=== PATIENT | male | born 1945 | race Caucasian/White ===

== ENCOUNTER 2019-02-26 11:07 | Inpatient (IN) | payer OTHER ==
[~2019-02-26] VITALS: Ht 172.7 cm; Wt 102.1 kg
[2019-02-26 12:14] LABS: BASOPHILS % (AUTO) 0.4 % (0.0-5.0); EOSINOPHILS % (AUTO) 0.7 % (0.0-8.0); HEMATOCRIT 43.9 % (42-54); LYMPHOCYTES % (AUTO) 6.6 % (21.0-51.0); MEAN CORPUSCULAR HEMOGLOBIN 29.1 pg (27.0-33.0); MEAN CORPUSCULAR HGB CONC 33.4 g/dL (32.0-36.0); MEAN CORPUSCULAR VOLUME 87.2 fL (79-99); MONOCYTES % (AUTO) 9.6 % (3.0-13.0); NEUTROPHILS % (AUTO) 82.7 % (40.0-77.0); NUCLEATED RED BLOOD CELLS 0.1 % (0.0-0.19); PLATELET COUNT (AUTO) 267 K/uL (130-400); RED BLOOD CELL COUNT(AUTO) 5.04 MIL/uL (4.50-6.20); RED CELL DISTRIBUTION WIDTH 15.3 % (11.0-15.5); WHITE BLOOD COUNT (AUTO) 11.7 K/uL (4.8-10.8)
[2019-02-26 12:27] LABS: CREATININE 1.1 mg/dL (0.5-1.5); POTASSIUM 4.2 mmol/L (3.5-5.1)
[2019-02-26 12:29] LABS: INR 1.03 (0.85-1.15); PARTIAL THROMBOPLASTIN TIME 28.2 SEC (26.3-35.5); PROTHROMBIN TIME 10.8 SEC (9.6-11.6)
[2019-02-26 12:34] LABS: ALBUMIN 3.3 g/dL (3.5-5.0); BILIRUBIN,TOTAL 1.4 mg/dL (0.2-1.0); TOTAL PROTEIN, SERUM 5.6 g/dL (6.0-8.3)
[2019-02-26] MEDS ORDERED: SODIUM CHLORIDE 0.9% 1000ML 1,000 ML IV ONE (13:06)
[2019-02-26 14:02] LABS: APPEARANCE,URINE Clear (CLEAR); BILIRUBIN,URINE Negative (NEGATIVE); COLOR,URINE Yellow (YELLOW); GLUCOSE, URINE (UA) Negative (NEGATIVE); KETONES,URINE Negative (NEGATIVE); LEUKOCYTE ESTERASE ,URINE Negative (NEGATIVE); NITRATE,URINE Negative (NEGATIVE); OCCULT BLOOD,URINE Negative (NEGATIVE); PROTEIN,URINE Negative (NEGATIVE)
[2019-02-26 19:09] VITALS: BP 120/72
[2019-02-26] MEDS ORDERED: HYDR-4153 PO (19:57)
[2019-02-26] MEDS ORDERED: TAMS-1 PO (19:57)
[2019-02-26] MEDS ORDERED: SOLI10TA PO (19:57)
[2019-02-26] MEDS ORDERED: ASPI-555 PO (19:57)
[2019-02-26] MEDS ORDERED: MONT10TA24 PO (19:57)
[2019-02-26] MEDS ORDERED: LOSA100T58 PO (19:57)
[2019-02-26] MEDS ORDERED: CETI10TA57 PO (19:57)
[2019-02-26] MEDS ORDERED: [UNRECOGNIZED DRUG - OTHER] (19:57)
[2019-02-26] MEDS ORDERED: MULT-1192 PO (19:57)
[2019-02-26] MEDS ORDERED: ATOR10 PO (19:57)
[2019-02-26] MEDS ORDERED: TURM1POW MC (19:57)
[2019-02-26] MEDS ORDERED: CHOL100018 PO (19:57)
[2019-02-26] MEDS ORDERED: NAPR220T57 PO (19:57)
[2019-02-26 23:30] VITALS: BP 173/103
[2019-02-27] VITALS (7 sets, daily range): BP systolic 134–172; BP diastolic 81–117
[2019-02-27] MEDS ORDERED: HYDRALAZINE HCL 20 MG/ML VIAL ONE (04:33)
[2019-02-27] MEDS: FAMOTIDINE 20MG TAB 20 MG TAB PO SCH (10:13)
[2019-02-27] MEDS: ENOXAPARIN SODIUM 40 MG/0.4 ML SYRINGE SQ SCH (10:13)
[2019-02-27] MEDS: HYDRALAZINE HCL 20 MG/ML VIAL IV PRN ×2 (10:15→22:47)
[2019-02-27] MEDS ORDERED: CETIRIZINE HCL 5 MG TABLET PO PRN (15:30)
[2019-02-27] MEDS: HYDRALAZINE HCL 25 MG TABLET PO SCH (17:31)
[2019-02-27] MEDS: ATORVASTATIN CALCIUM 20 MG TABLET PO SCH (21:06)
[2019-02-27] MEDS: OXYBUTYNIN CHLORIDE 5 MG TABLET PO SCH (21:07)
--- NOTE | 2019-02-27 22:47 | NUR ---
B/P B/P 172/117, NO SOB, NO C/O PAIN , HYDRALAZINE 10 MG IVP GIVEN SLOWLY
--- NOTE | 2019-02-27 23:45 | NUR ---
MED EFFECT B/P 155/88, NO SOB, NO C/O PAIN AT THIS TIME
[2019-02-28 03:48] VITALS: BP 161/80
[2019-02-28 06:13] LABS: HEMATOCRIT 42.8 % (42-54); MEAN CORPUSCULAR HEMOGLOBIN 29.6 pg (27.0-33.0); MEAN CORPUSCULAR HGB CONC 33.8 g/dL (32.0-36.0); MEAN CORPUSCULAR VOLUME 87.6 fL (79-99); PLATELET COUNT (AUTO) 309 K/uL (130-400); RED BLOOD CELL COUNT(AUTO) 4.89 MIL/uL (4.50-6.20); RED CELL DISTRIBUTION WIDTH 15.6 % (11.0-15.5); WHITE BLOOD COUNT (AUTO) 7.2 K/uL (4.8-10.8)
[2019-02-28 06:18] LABS: CREATININE 0.7 mg/dL (0.5-1.5); POTASSIUM 3.7 mmol/L (3.5-5.1)
[2019-02-28 07:51] VITALS: BP 177/115
[2019-02-28] MEDS: **HM**Cholecalciferol (Vitamin D3) (Vitamin D3) 1,000 UNIT PO SCH (09:00)
[2019-02-28] MEDS: LOSARTAN 100 MG TABLET PO SCH (09:03)
[2019-02-28] MEDS: ASPIRIN 81MG TAB.CHEW PO SCH (09:03)
[2019-02-28] MEDS: MULTIVITAMIN TABLET PO SCH (09:03)
[2019-02-28] MEDS: OXYBUTYNIN CHLORIDE 5 MG TABLET PO SCH ×3 (09:03→20:00)
[2019-02-28] MEDS: MONTELUKAST SODIUM 10 MG TAB PO SCH (09:03)
[2019-02-28] MEDS: FAMOTIDINE 20MG TAB 20 MG TAB PO SCH (09:03)
[2019-02-28] MEDS: HYDRALAZINE HCL 25 MG TABLET PO SCH ×2 (09:03→20:00)
[2019-02-28] MEDS: TAMSULOSIN HCL 0.4 MG CAP.ER.24H PO SCH (09:03)
[2019-02-28] MEDS: ENOXAPARIN SODIUM 40 MG/0.4 ML SYRINGE SQ SCH (09:05)
[2019-02-28 12:00] VITALS: BP 122/72
[2019-02-28] MEDS ORDERED: HYDRALAZINE HCL 25 MG TABLET PO SCH (12:00)
--- NOTE | 2019-02-28 15:00 | NUR ---
INITIAL MET W PATIENT & FAMILY RE PLACEMENT-NYA HOFFMAN IS REQUESTED. PT LIVES W SPOUSE WHO PROVIDES CARE. PT IS BLIND, HAS DEMENTIA AND REPEATS HIMSELF A LOT, FREQUENT FALLS AND POOR BALANCE, HAS CANE, HAS A WALKER, BUT DOES NOT USE. REFERRAL FAXED AND CALLED TO [facility] Addendum: 03/01/19 at 6 by VIC OWENS RN CM Amended: Links added.
--- NOTE | 2019-02-28 15:50 | NUR ---
[employer] consult Patient assessed as ordered. Patient injured right great toe when he fell at home last Monday. Right great toe nail removed in ED. [facility] recommendations submitted. Addendum: 02/28/19 at 1631 by ZOEY JENKINS RN/ Amended: Links added.
[2019-02-28 16:00] VITALS: BP 135/94
[2019-02-28] MEDS: NEOMY SULF/BACITRAC ZN/POLY OINT 30GM TUBE TP SCH (18:26)
[2019-02-28 19:30] VITALS: BP 135/90
[2019-02-28] MEDS ORDERED: HYDRALAZINE HCL 25 MG TABLET ONE (19:57)
[2019-02-28] MEDS: ATORVASTATIN CALCIUM 20 MG TABLET PO SCH (20:00)
[2019-02-28] MEDS ORDERED: DILTIAZEM HCL 5 MG/ML 5 ML VIAL IVP SCH (20:45)
[2019-02-28] MEDS ORDERED: DILTIAZEM HCL 5 MG/ML 10 ML VIAL IV ONE (20:50)
--- NOTE | 2019-02-28 21:05 | NUR ---
[employer] THREAD MACHINE OPERATOR TECH CALLED TO INFORM ME THAT PATIENT HAD CONVERTED FROM SINUS TO ATRIAL FIBRILLATION IN THE S SINCE 1854. PATIENT ASYMPTOMATIC AND BLOOD PRESSURE AT 138/68 HR 94. I. HIREN RODRIGUEZ INFORMED OF PATIENT CONDITION AND GAVE ORDERS FOR CARDIZEM IV ONCE AND MAY REPEAT DOSE TIMES ONE.
--- NOTE | 2019-02-28 23:30 | NUR ---
SINUS PATIENT CONVERTED BACK TO SINUS RHYTHM
[2019-02-28 23:58] VITALS: BP 146/90
[2019-03-01 03:30] VITALS: BP 156/99
[2019-03-01 04:26] LABS: HEMATOCRIT 44.7 % (42-54); MEAN CORPUSCULAR HEMOGLOBIN 29.5 pg (27.0-33.0); MEAN CORPUSCULAR VOLUME 88.6 fL (79-99); RED BLOOD CELL COUNT(AUTO) 5.05 MIL/uL (4.50-6.20); WHITE BLOOD COUNT (AUTO) 6.7 K/uL (4.8-10.8)
[2019-03-01 04:27] LABS: MEAN CORPUSCULAR HGB CONC 33.3 g/dL (32.0-36.0); NUCLEATED RED BLOOD CELLS 0.1 % (0.0-0.19); PLATELET COUNT (AUTO) 277 K/uL (130-400); RED CELL DISTRIBUTION WIDTH 15.8 % (11.0-15.5)
[2019-03-01 04:36] LABS: CREATININE 0.9 mg/dL (0.5-1.5); POTASSIUM 3.7 mmol/L (3.5-5.1)
[2019-03-01] MEDS: ASPIRIN 81MG TAB.CHEW PO SCH (07:47)
[2019-03-01] MEDS: MONTELUKAST SODIUM 10 MG TAB PO SCH (07:47)
[2019-03-01] MEDS: OXYBUTYNIN CHLORIDE 5 MG TABLET PO SCH ×3 (07:48→20:58)
[2019-03-01] MEDS: FAMOTIDINE 20MG TAB 20 MG TAB PO SCH (07:51)
[2019-03-01] MEDS: TAMSULOSIN HCL 0.4 MG CAP.ER.24H PO SCH (07:51)
[2019-03-01] MEDS: MULTIVITAMIN TABLET PO SCH (07:51)
[2019-03-01] MEDS: METOPROLOL TARTRATE 25 MG TAB PO SCH ×2 (07:56→20:58)
[2019-03-01] MEDS: **HM**Cholecalciferol (Vitamin D3) (Vitamin D3) 1,000 UNIT PO SCH (07:56)
[2019-03-01] MEDS: LOSARTAN 100 MG TABLET PO SCH (07:56)
[2019-03-01 07:57] VITALS: BP 157/111
[2019-03-01] MEDS: HYDRALAZINE HCL 25 MG TABLET PO SCH ×3 (07:57→20:58)
[2019-03-01] MEDS: ENOXAPARIN SODIUM 40 MG/0.4 ML SYRINGE SQ SCH (07:58)
[2019-03-01] MEDS: NEOMY SULF/BACITRAC ZN/POLY OINT 30GM TUBE TP SCH (08:01)
[2019-03-01 10:54] VITALS: BP 121/87
--- NOTE | 2019-03-01 16:00 | NUR ---
AWAITING AUTH FROM [facility] UPDATED PT NOTES FAXED TO [facility]. BLANK FAXED, Addendum: 03/01/19 at 7 by VIC OWENS RN CM Amended: Links added.
[2019-03-01 16:14] VITALS: BP 136/90
[2019-03-01 19:30] VITALS: BP 151/91
[2019-03-01] MEDS: ATORVASTATIN CALCIUM 20 MG TABLET PO SCH (20:58)
[2019-03-01 23:30] VITALS: BP 133/94
[2019-03-02 03:30] VITALS: BP 159/88
[2019-03-02 04:19] LABS: HEMATOCRIT 43.2 % (42-54); MEAN CORPUSCULAR HEMOGLOBIN 29.3 pg (27.0-33.0); MEAN CORPUSCULAR HGB CONC 33.4 g/dL (32.0-36.0); MEAN CORPUSCULAR VOLUME 87.5 fL (79-99); PLATELET COUNT (AUTO) 318 K/uL (130-400); RED BLOOD CELL COUNT(AUTO) 4.94 MIL/uL (4.50-6.20); RED CELL DISTRIBUTION WIDTH 15.6 % (11.0-15.5); WHITE BLOOD COUNT (AUTO) 6.8 K/uL (4.8-10.8)
[2019-03-02 04:21] LABS: CREATININE 0.8 mg/dL (0.5-1.5); POTASSIUM 3.6 mmol/L (3.5-5.1)
[2019-03-02] MEDS ORDERED: LACTULOSE 20 GM/30 ML UDCUP PO PRN (05:00)
[2019-03-02] MEDS: LACTULOSE 20 GM/30 ML UDCUP PO PRN ×2 (05:01→18:34)
[2019-03-02 07:41] VITALS: BP 158/69
[2019-03-02] MEDS: HYDRALAZINE HCL 25 MG TABLET PO SCH ×2 (08:13→14:00)
[2019-03-02] MEDS: ASPIRIN 81MG TAB.CHEW PO SCH (08:13)
[2019-03-02] MEDS: LOSARTAN 100 MG TABLET PO SCH ×2 (08:13→20:52)
[2019-03-02] MEDS: TAMSULOSIN HCL 0.4 MG CAP.ER.24H PO SCH ×2 (08:13→20:52)
[2019-03-02] MEDS: MULTIVITAMIN TABLET PO SCH (08:14)
[2019-03-02] MEDS: OXYBUTYNIN CHLORIDE 5 MG TABLET PO SCH ×3 (08:14→20:52)
[2019-03-02] MEDS: METOPROLOL TARTRATE 25 MG TAB PO SCH ×2 (08:14→20:52)
[2019-03-02] MEDS: FAMOTIDINE 20MG TAB 20 MG TAB PO SCH (08:14)
[2019-03-02] MEDS: MONTELUKAST SODIUM 10 MG TAB PO SCH (08:14)
[2019-03-02] MEDS: ENOXAPARIN SODIUM 40 MG/0.4 ML SYRINGE SQ SCH (08:21)
[2019-03-02] MEDS: ACETAMINOPHEN 325 MG TAB PO PRN ×2 (08:24→20:54)
[2019-03-02] MEDS: **HM**Cholecalciferol (Vitamin D3) (Vitamin D3) 1,000 UNIT PO SCH (09:00)
[2019-03-02 10:51] VITALS: BP 115/70
[2019-03-02] MEDS: NEOMY SULF/BACITRAC ZN/POLY OINT 30GM TUBE TP SCH (14:37)
[2019-03-02 16:17] VITALS: BP 131/85
[2019-03-02 19:42] VITALS: BP 147/95
[2019-03-02] MEDS: ATORVASTATIN CALCIUM 20 MG TABLET PO SCH (20:52)
[2019-03-03] VITALS (8 sets, daily range): BP systolic 123–168; BP diastolic 78–112
[2019-03-03] MEDS: ACETAMINOPHEN 325 MG TAB PO PRN ×2 (09:00→18:54)
[2019-03-03] MEDS: **HM**Cholecalciferol (Vitamin D3) (Vitamin D3) 1,000 UNIT PO SCH (09:00)
[2019-03-03] MEDS: OXYBUTYNIN CHLORIDE 5 MG TABLET PO SCH ×3 (10:03→21:46)
[2019-03-03] MEDS: HYDRALAZINE HCL 25 MG TABLET PO SCH ×3 (10:03→21:46)
[2019-03-03] MEDS: ASPIRIN 81MG TAB.CHEW PO SCH (10:03)
[2019-03-03] MEDS: MULTIVITAMIN TABLET PO SCH (10:03)
[2019-03-03] MEDS: MONTELUKAST SODIUM 10 MG TAB PO SCH (10:03)
[2019-03-03] MEDS: FAMOTIDINE 20MG TAB 20 MG TAB PO SCH (10:04)
[2019-03-03] MEDS: LACTULOSE 20 GM/30 ML UDCUP PO PRN (10:07)
[2019-03-03] MEDS: ENOXAPARIN SODIUM 40 MG/0.4 ML SYRINGE SQ SCH (10:08)
[2019-03-03] MEDS ORDERED: DOCUSATE SODIUM 100 MG CAP PO PRN (11:00)
[2019-03-03] MEDS ORDERED: SENNOSIDES 8.6 MG TABLET PO PRN (11:00)
--- NOTE | 2019-03-03 11:00 | NUR ---
DR. LU RUSHING HERE TO SEE PATIENT. INFORMED MD OF PATIENT REPORTING NO BOWEL MOVEMENT SINCE 02/26/19 DESPITE TAKING LACTULOSE YESTERDAY AND TODAY. MD PLACED ORDERS.
[2019-03-03] MEDS: METOPROLOL TARTRATE 25 MG TAB PO SCH ×2 (11:05→21:46)
[2019-03-03] MEDS: NEOMY SULF/BACITRAC ZN/POLY OINT 30GM TUBE TP SCH (14:19)
[2019-03-03] MEDS ORDERED: TAMSULOSIN HCL 0.4 MG CAP.ER.24H PO SCH (21:00)
[2019-03-03] MEDS ORDERED: LOSARTAN 100 MG TABLET PO SCH (21:00)
[2019-03-03] MEDS: ATORVASTATIN CALCIUM 20 MG TABLET PO SCH (21:46)
[2019-03-03] MEDS: LOSARTAN 100 MG TABLET PO SCH (21:46)
[2019-03-03] MEDS: TAMSULOSIN HCL 0.4 MG CAP.ER.24H PO SCH (21:46)
[2019-03-04 04:00] VITALS: BP 161/106
[2019-03-04 05:41] LABS: HEMATOCRIT 43.1 % (42-54); MEAN CORPUSCULAR HEMOGLOBIN 29.3 pg (27.0-33.0); MEAN CORPUSCULAR HGB CONC 33.4 g/dL (32.0-36.0); MEAN CORPUSCULAR VOLUME 87.8 fL (79-99); PLATELET COUNT (AUTO) 304 K/uL (130-400); RED CELL DISTRIBUTION WIDTH 15.5 % (11.0-15.5); WHITE BLOOD COUNT (AUTO) 6.4 K/uL (4.8-10.8)
[2019-03-04 05:43] LABS: CREATININE 0.8 mg/dL (0.5-1.5); POTASSIUM 3.3 mmol/L (3.5-5.1)
[2019-03-04 06:38] LABS: BAND NEUTROPHILS % (MANUAL) 1 % (0-2); BASOPHILS % (MANUAL) 1 % (0-2); EOSINOPHILS % (MANUAL) 1 % (1-6); LYMPHOCYTES % (MANUAL) 13 % (22-44); MAN.DIFF COMMENT-IMPRESSION MANUAL DIFFERENTIAL; MONOCYTES % (MANUAL) 9 % (2-9); SEGMENTED NEUTROPHILS % 75 % (40-70)
[2019-03-04 06:39] LABS: PLATELET MORPHOLOGY COMMENT ADEQUATE
[2019-03-04] MEDS ORDERED: POTASSIUM CHLORIDE 20 MEQ ERTAB PO SCH (07:30)
[2019-03-04] MEDS ORDERED: HYDR-4154 PO (07:51)
[2019-03-04] MEDS ORDERED: AMLO5TAB4 PO (07:51)
[2019-03-04] MEDS ORDERED: FAMO20TA8 PO (07:51)
[2019-03-04] MEDS ORDERED: METO25 PO (07:51)
[2019-03-04] MEDS ORDERED: LOSA100T2 PO (07:51)
[2019-03-04 08:00] VITALS: BP 148/105
[2019-03-04] MEDS: METOPROLOL TARTRATE 25 MG TAB PO SCH (08:23)
[2019-03-04] MEDS: HYDRALAZINE HCL 25 MG TABLET PO SCH ×2 (08:23→14:52)
[2019-03-04] MEDS: ASPIRIN 81MG TAB.CHEW PO SCH (08:23)
[2019-03-04] MEDS: ENOXAPARIN SODIUM 40 MG/0.4 ML SYRINGE SQ SCH (08:24)
[2019-03-04] MEDS: **HM**Cholecalciferol (Vitamin D3) (Vitamin D3) 1,000 UNIT PO SCH (08:24)
[2019-03-04] MEDS: NEOMY SULF/BACITRAC ZN/POLY OINT 30GM TUBE TP SCH (08:24)
[2019-03-04] MEDS: FAMOTIDINE 20MG TAB 20 MG TAB PO SCH (08:24)
[2019-03-04] MEDS: MONTELUKAST SODIUM 10 MG TAB PO SCH (08:24)
[2019-03-04] MEDS: MULTIVITAMIN TABLET PO SCH (08:24)
[2019-03-04] MEDS: OXYBUTYNIN CHLORIDE 5 MG TABLET PO SCH ×2 (08:24→14:52)
[2019-03-04] MEDS ORDERED: AMLODIPINE BESYLATE 5 MG TAB PO SCH (09:00)
--- NOTE | 2019-03-04 10:00 | NUR ---
cm note faxed clinical update including PT notes to lay Macedo from [facility]. [facility] has received and has submitted for for authorization, still pending approval.
[2019-03-04 12:00] VITALS: BP 143/93
--- NOTE | 2019-03-04 15:00 | NUR ---
cm note call made to selena at [facility] , and states she is working on getting pt approved, she will let us know when approved.
[2019-03-04 16:00] VITALS: BP 157/98
--- NOTE | 2019-03-04 16:40 | NUR ---
cm note per Hellen at [facility]. pt approved, and can go today. updated primary nurse Jevon. updated pt/spouse. .
--- NOTE | 2019-03-04 16:53 | NUR ---
RD Notification Pt admitted for frequent falls. Pt PO intake at 50%. Dietary preferences updated as per Pt family members. Pt LBM 03/03/19. Pt monitored labs: Na 135, K 3.3, Cl 98, Ca 8.1, Alb 3.3. Pt Obese (BMI 34.2). RD to continue to monitor. Please notify as additional nutrition concerns arise. Thank you. Addendum: 03/04/19 at [address] RD Amended: Links added.
== END 2019-03-04 20:01 | DRG 605 ==
LOC: EDH 11:07 → OBSVTOIN 16:54 → INTOOBSV 16:54 → EDHIP 16:54 → 4BH 18:27
PROVIDERS: ADMIT Hospitalist; ATTEND Hospitalist
PROC: 0HDRXZZ Extraction of Toe Nail, External Approach (ICD-10-PCS; principal; 2019-02-26)
DX: S91.209A Unspecified open wound of unspecified toe(s) with damage to nail, initial encounter (principal); E87.1 Hypo-osmolality and hyponatremia; E44.0 Moderate protein-calorie malnutrition; E66.01 Morbid (severe) obesity due to excess calories; E78.5 Hyperlipidemia, unspecified; I10 Essential (primary) hypertension; I95.1 Orthostatic hypotension; Z68.34 Body mass index [BMI] 34.0-34.9, adult; W18.30XA Fall on same level, unspecified, initial encounter; Y93.89 Activity, other specified; Y92.091 Bathroom in other non-institutional residence as the place of occurrence of the external cause; Y99.8 Other external cause status
CPT/HCPCS: 36415; 70450; 71045; 72125; 73502; 73620; 80048; 80053; 81003; 84132; 84484; 85025; 85027; 85610; 85730; 93005; 93306; 93880; 97039; G0378; J0360; J1650; J3490; J7030